=== PATIENT | male | born 1960 | race Caucasian/White ===

== ENCOUNTER 2018-04-16 22:35 | Emergency (ER) | payer OTHER ==
[~2018-04-16] VITALS: Ht 190.5 cm; Wt 113.4 kg
[~2018-04-16 22:35] MED LIST: ALBU1AER4 IN; ASPI81CH43 PO; ATOR20TA PO; HYDR4TAB21 PO; MOME200A INH; MORP1TAB12 PO
[2018-04-16 23:36] LABS: Basophils # (auto) 0.1 uL; Basophils % (auto) 0.7 % (0.0-2.0); Eosinophils # (auto) 0.1 uL; Eosinophils % (auto) 1.5 % (0.0-7.0); Hematocrit 49.8 % (41.0-53.0); Hemoglobin 16.7 g/dL (13.5-17.5); Lymphocytes # (auto) 1.9 uL; Lymphocytes % (auto) 20.9 % (10.0-50.0); Mean Corpuscular Hemoglobin 29.9 pg (28.0-32.0); Mean Corpuscular Hgb Conc. 33.6 g/dL (32.0-36.0); Monocytes # (auto) 0.9 uL; Monocytes % (auto) 9.7 % (0.0-12.0); Neutrophils % (auto) 67.2 % (37.0-80.0); Nucleated Red Blood Cells % 0.1 %; Platelet Count (auto) 286 10^3/uL (140-450); Red Cell Distribution Width 14.8 % (11.8-14.3); White Blood Cell 8.9 10^3/uL (4.4-10.8)
[2018-04-16 23:53] LABS: Alanine Aminotransferase 15 U/L (16-61); Albumin 2.9 g/dL (3.4-5.0); Anion Gap 10 (5-15); Aspartate Aminotransferase 15 U/L (15-37); BUN/Creatinine Ratio 10.4; Blood Urea Nitrogen 11 mg/dL (7-18); Calcium 8.9 mg/dL (8.5-10.1); Carbon Dioxide 24 mmol/L (21-32); Chloride 107 mmol/L (98-107); GFR African American 92 mL/min; GFR Non-African American 76 mL/min; Glucose 91 mg/dL (74-106); Magnesium 2.1 mg/dL (1.6-2.6); Potassium 4.1 mmol/L (3.5-5.1); Sodium 141 mmol/L (136-145)
[2018-04-16 23:58] LABS: Alkaline Phosphatase 82 U/L (45-117); Bilirubin, Total 0.4 mg/dL (0.2-1.0); Total Protein 7.5 g/dL (6.4-8.2)
[2018-04-17 03:35] VITALS: BP 136/87
[2018-04-17 04:34] LABS: Urine Bacteria NONE SEEN /hpf (None Seen); Urine Blood TRACE /uL (Negative); Urine Mucus FEW (None Seen); Urine WBC 3 /hpf (0 - 3)
== END 2018-04-17 05:17 | disposition home or self-care (01) ==
LOC: EDBD 22:35 → ER 22:35
DX: E86.0 Dehydration (principal); E11.9 Type 2 diabetes mellitus without complications; F17.200 Nicotine dependence, unspecified, uncomplicated; J44.9 Chronic obstructive pulmonary disease, unspecified; R51 Headache; R06.02 Shortness of breath; Z79.82 Long term (current) use of aspirin
CPT/HCPCS: 36415; 70450; 71045; 80053; 81001; 83605; 83735; 83880; 84484; 85025; 87040; 87077; 87186; 93005